=== PATIENT | female | born 1990 | race Two or more races ===

== ENCOUNTER 2020-09-25 11:31 | Outpatient (REF) | payer BC, SELFPAY ==
--- NOTE | ~2020-09-25 | XR_ITS ---
EXAMINATION: XR KNEE, BILATERAL XR HAND, BILATERAL CLINICAL INFORMATION: Bilateral knee pain and bilateral hand pain. COMPARISON: None TECHNIQUE: 3 views each knee. 3 views each hand. FINDINGS: LEFT HAND: The joint space is maintained throughout the left hand. No visible bony erosive changes, periarticular spurring or soft tissue swelling seen. RIGHT HAND: The joint space is maintained throughout the right hand. No visible bony erosive changes, periarticular spurring or soft tissue swelling seen. RIGHT KNEE: The tricompartment joint space is maintained normal. No bony erosive changes. No loose bodies or joint effusion seen. LEFT KNEE: The tricompartment joint space is maintained normal. No visible acute fracture, dislocation or subluxation seen. There are no bony erosive changes. No abnormal joint effusion. XR/XR knee RT 3V IMPRESSION: Unremarkable bilateral hand exam. Unremarkable bilateral knee exam.
--- NOTE | ~2020-09-25 | XR_ITS ---
EXAMINATION: XR KNEE, BILATERAL XR HAND, BILATERAL CLINICAL INFORMATION: Bilateral knee pain and bilateral hand pain. COMPARISON: None TECHNIQUE: 3 views each knee. 3 views each hand. FINDINGS: LEFT HAND: The joint space is maintained throughout the left hand. No visible bony erosive changes, periarticular spurring or soft tissue swelling seen. RIGHT HAND: The joint space is maintained throughout the right hand. No visible bony erosive changes, periarticular spurring or soft tissue swelling seen. RIGHT KNEE: The tricompartment joint space is maintained normal. No bony erosive changes. No loose bodies or joint effusion seen. LEFT KNEE: The tricompartment joint space is maintained normal. No visible acute fracture, dislocation or subluxation seen. There are no bony erosive changes. No abnormal joint effusion. XR/XR hand LT min 3V IMPRESSION: Unremarkable bilateral hand exam. Unremarkable bilateral knee exam.
--- NOTE | ~2020-09-25 | XR_ITS ---
EXAMINATION: XR KNEE, BILATERAL XR HAND, BILATERAL CLINICAL INFORMATION: Bilateral knee pain and bilateral hand pain. COMPARISON: None TECHNIQUE: 3 views each knee. 3 views each hand. FINDINGS: LEFT HAND: The joint space is maintained throughout the left hand. No visible bony erosive changes, periarticular spurring or soft tissue swelling seen. RIGHT HAND: The joint space is maintained throughout the right hand. No visible bony erosive changes, periarticular spurring or soft tissue swelling seen. RIGHT KNEE: The tricompartment joint space is maintained normal. No bony erosive changes. No loose bodies or joint effusion seen. LEFT KNEE: The tricompartment joint space is maintained normal. No visible acute fracture, dislocation or subluxation seen. There are no bony erosive changes. No abnormal joint effusion. XR/XR hand RT min 3V IMPRESSION: Unremarkable bilateral hand exam. Unremarkable bilateral knee exam.
--- NOTE | ~2020-09-25 | XR_ITS ---
EXAMINATION: XR KNEE, BILATERAL XR HAND, BILATERAL CLINICAL INFORMATION: Bilateral knee pain and bilateral hand pain. COMPARISON: None TECHNIQUE: 3 views each knee. 3 views each hand. FINDINGS: LEFT HAND: The joint space is maintained throughout the left hand. No visible bony erosive changes, periarticular spurring or soft tissue swelling seen. RIGHT HAND: The joint space is maintained throughout the right hand. No visible bony erosive changes, periarticular spurring or soft tissue swelling seen. RIGHT KNEE: The tricompartment joint space is maintained normal. No bony erosive changes. No loose bodies or joint effusion seen. LEFT KNEE: The tricompartment joint space is maintained normal. No visible acute fracture, dislocation or subluxation seen. There are no bony erosive changes. No abnormal joint effusion. XR/XR knee LT 3V IMPRESSION: Unremarkable bilateral hand exam. Unremarkable bilateral knee exam.
[2020-09-25 13:34] LABS: MANUAL DIFF FLAG NO
[2020-09-25 13:48] LABS: Basophils Percent Auto 0.4 % (0-2); Eosinophils Absolute Auto 0.3 X10*3/uL (0.0-0.4); Eosinophils Percent Auto 3.5 % (0-4); Hematocrit 38.5 % (37-47); Hemoglobin 12.3 g/dl (12.0-16.0); Imm Gran Abs Auto 0.06 X10*3/uL (0.00-0.03); Imm Gran Pct Auto 0.7 % (0.0-0.4); Lymphocytes Percent Auto 22.4 % (20-40); Mean Corpuscular HGB Conc 31.9 g/dl (31.0-35.0); Mean Corpuscular Hemoglobin 26.7 pg (27.0-33.0); Mean Corpuscular Volume 83.5 fL (80-98); Mean Platelet Volume 10.4 fL (9.4-12.3); Monocytes Absolute Auto 0.4 X10*3/uL (0.1-1.2); Monocytes Percent Auto 4.6 % (2-11); Neutrophils Absolute Auto 6.1 X10*3/uL (2.0-8.3); Neutrophils Percent Auto 68.4 % (45-73); Platelet Count 429 X10*3/uL (160-400); Red Blood Count 4.61 X10*6/uL (4.20-5.50); Red Cell Distribution Width 13.6 % (11.0-16.0); White Blood Count 8.9 X10*3/uL (4.8-10.8)
[2020-09-25 14:21] LABS: Alanine Aminotransferase 33 U/L (0-31); Albumin Level 4.3 g/dL (3.5-5.0); Alkaline Phosphatase 126 U/L (39-117); Anion Gap 15 (12-20); Aspartate Amino Transferase 22 U/L (5-31); Bilirubin Total 0.2 mg/dL (0.0-1.0); Blood Urea Nitrogen 15 mg/dL (9-16); C Reactive Protein 1.87 mg/dL (< or = 0.50); Calcium 9.1 mg/dL (8.4-10.2); Carbon Dioxide 23 mmol/L (22-29); Chloride 106 mmol/L (96-108); Estimated Glomerular Filt Rate > 60; Glucose Random 97 mg/dL (60-115); Potassium 4.4 mmol/L (3.3-5.1); Rheumatoid Factor < 15.0 IU/mL (<15.0); Sodium 140 mmol/L (135-145); Total Protein 6.9 g/dL (6.5-8.0)
[2020-09-25 14:25] LABS: Thyroid Stimulating Hormone 1.06 uIU/mL (0.32-4.0)
[2020-09-25 15:00] LABS: Erythrocyte Sedimentation Rate 18 MM/HR (0-20)
[2020-09-26 17:31] LABS: Lyme Abs Screen <0.90 index
[2020-09-28 14:17] LABS: Antibody to SS-A Antigen <1.0 NEG AI (<1.0 NEG); Antibody to SS-B Antigen <1.0 NEG AI (<1.0 NEG)
[2020-09-28 14:38] LABS: Cyclic Citrullinated Peptide <16 UNITS
[2020-09-28 15:27] LABS: Anti Nuclear Antibody Screen NEGATIVE (NEGATIVE)
[2020-09-30 10:42] LABS: Vitamin D 25-OH, D2 <4 ng/mL; Vitamin D 25-OH, D3 30 ng/mL; Vitamin D 25-OH, Total 30 ng/mL (30-100)
== END 2020-09-25 11:32 | disposition home or self-care (01) ==
LOC: HO.LAB 11:31
PROVIDERS: PCP Internal Medicine; Referring Provider Internal Medicine; Visit Provider Student in an Organized Health Care Education/Training Program
DX: M25.50 Pain in unspecified joint (principal)
CPT/HCPCS: 36415; 73130; 73562; 80053; 82306; 84443; 85025; 85652; 86038; 86039; 86140; 86200; 86235; 86431; 86618

== ENCOUNTER → 2020-11-13 15:46 | Outpatient (BNVA) | payer BC, SELFPAY | PROVIDERS: PCP Internal Medicine; Visit Provider Student in an Organized Health Care Education/Training Program ==